=== PATIENT | female | born 1965 | race American Indian/Alaskan Native ===

== ENCOUNTER 2016-10-04 05:53 | Emergency (ER) | payer BC ==
[2016-10-04] MEDS ORDERED: TYLENOL PO ONE (10:22)
--- NOTE | 2016-10-04 10:24 | Emergency Department Report ---
Chief Complaint: Back Pain/Injury Stated Complaint: back pain - HPI History of Present Illness: 51-year-old -[place] female comes in for complaint of right lower back pain that radiates to the right flank 2 days. Patient was arrived this morning at 0555. She was having nausea at that time she has no nausea now no diarrhea has taken no [id number] medication. As she's had no prior similar events. - Exam Physical Exam: Alert and oriented 3 right side flank tenderness. Cardio S1-S2 regular rate and rhythm respiratory intoxication bilateral MSE screening note: Focused history and physical exam performed. Due to findings the following was ordered: Patient's been evaluated by this provider fast track. Labs and urine is ordered and completed during downtime. Were waiting for lab to send over the results. Patient be evaluated in fast track CT scan ordered concern for kidney stone. ED Disposition for MSE Condition: Stable Referrals: JEAN ORTA MD [Primary Care Provider] - 3-5 Days
[2016-10-04 10:25] VITALS: BP 158/93
--- NOTE | 2016-10-04 11:21 | Cat Scan Report ---
CT scan of abdomen and pelvis without IV contrast: History: Right flank pain. Findings: Normal lung bases. No pleural pericardial effusion. Normal liver and pancreas. 1.5 cm hypodensity spleen probably cyst. Patient status post cholecystectomy. Normal adrenals and right kidney parenchyma and bladder. Nonobstructing 3 mm calculus left kidney. Normal appendix. Stool in colon predominantly ascending colon. No evidence of diverticulitis. Calcification within the uterus suggestive of calcified fibroid. No free intraperitoneal fluid or air. No evidence of adenopathy. Normal aorta. Impression: Nonobstructing calculus left kidney. Small calcified fibroid uterus. Hypodensity spleen probably cysts. Essentially negative CT scan of the abdomen CT scan of pelvis.
[2016-10-04] MEDS ORDERED: TORADOL IM ONE (12:03)
[2016-10-04] MEDS ORDERED: NORCO 5/325 PO ONE (12:03)
[2016-10-04 12:53] LABS: Basophils % (Auto) 0.8 % (0.0-1.8); Eosinophils % (Auto) 1.2 % (0.0-4.3); Hematocrit 40.8 % (30.3-42.9); Mean Corpuscular HGB Conc 32 % (30-34); Mean Corpuscular Hemoglobin 27 pg (28-32); Mean Corpuscular Volume 86 fl (79-97); Platelet Count 344 K/mm3 (140-440); Red Blood Count 4.74 M/mm3 (3.65-5.03); Red Cell Distribution Width 14.1 % (13.2-15.2); White Blood Count 6.2 K/mm3 (4.5-11.0)
[2016-10-04 12:56] LABS: Anion Gap 17 mmol/L; BUN/Creatinine Ratio 16.66; Blood Urea Nitrogen 10 mg/dL (7-17); Carbon Dioxide 25 mmol/L (22-30); Chloride 99.5 mmol/L (98-107); Glucose 98 mg/dL (65-100); Potassium 4.2 mmol/L (3.6-5.0); Sodium 137 mmol/L (137-145)
[2016-10-04 13:00] LABS: Bacteria,Urine 1+ /HPF (Negative); Bilirubin,Urine NEG (Negative); Blood,Urine LG (Negative); Ketones,Urine NEG (Negative); Leukocyte Esterase,Urine SM (Negative); Nitrite,Urine NEG (Negative); Protein,Urine <15 mg/dL mg/dL (Negative); Urobilinogen,Urine < 2.0 mg/dL (<2.0)
[2016-10-04] MEDS ORDERED: VALIUM PO ONE (13:44)
--- NOTE | 2016-10-04 14:00 | Emergency Department Report ---
Entered by NELLA MONTAÑO, acting as scribe for TANVI TORRES PA. ED Back Pain/Injury HPI - General Chief Complaint: Back Pain/Injury Stated Complaint: back pain Time Seen by Provider: 10/04/16 11:23 Source: patient Mode of arrival: Ambulatory Limitations: No Limitations - History of Present Illness Initial Comments: 51 year old female presents to the ED for evaluation of right low back pain with radiation to right lower abdomen for 2-3 days. Patient reports her back pain worsens with deep breath and movement. She denies fever, N/V/D, constipation, urinary symptoms, chest pain, shortness of breath. No PMHx kidney stones or previous similar episodes. LNMP 09/30/2016 and she is currently on her period. MD Complaint: back pain -: days(s) (2-3) Similar Symptoms Previously: No Place: home Radiation: abdomen (right lower quadrant) Improves With: none Worsens With: deep breaths/cough Context: unknown Associated Symptoms: abdominal pain (right lower quadrant). denies: chest pain , difficulty urinating, incontinence, fever/chills, constipation, nausea/ vomiting, shortness of breath - Related Data Previous Rx's Medication Instructions Recorded Last Taken Type Ciprofloxacin HCl [Ciprofloxacin 500 mg PO Q12HR #6 tab 07/02/15 Unknown Rx TAB] HYDROcodone/APAP 10-325 [Brenham 1 each PO Q4-6H PRN #16 tablet 07/02/15 Unknown Rx 10/325] Naproxen [Naprosyn TAB] 500 mg PO BID #20 tablet 08/18/15 Unknown Rx methOCARBAMOL [Robaxin TAB] 500 mg PO Q6H PRN #20 tablet 08/18/15 Unknown Rx Acetaminophen/Codeine 1 tab PO Q6H PRN #15 tab 08/28/15 Unknown Rx [Acetaminophen-Codeine #3 TAB] Naproxen [Naprosyn] 500 mg PO BID #30 tablet 10/04/16 Unknown Rx Sulfamethoxazole/Trimethoprim 1 each PO BID #10 tablet 10/04/16 Unknown Rx [Bactrim DS TAB] methOCARBAMOL [Robaxin TAB] 500 mg PO BID #14 tab 10/04/16 Unknown Rx Allergies Allergy/AdvReac Type Severity Reaction Status Date / Time Contrast ivp dye Allergy Hives Uncoded 08/18/15 09:10 ED Review of Systems Comment: All other systems reviewed and negative Constitutional: denies: chills, fever Respiratory: denies: shortness of breath Cardiovascular: denies: chest pain Gastrointestinal: abdominal pain (right lower quadrant). denies: nausea, vomiting, diarrhea, constipation Genitourinary: denies: urgency, dysuria, frequency, hematuria, discharge, abnormal menses Musculoskeletal: back pain (right low back) ED Past Medical Hx - Past Medical History Hx Headaches / Migraines: Yes Additional medical history: chiari malformation - Surgical History Hx Cholecystectomy: Yes Additional Surgical History: tonsillectomy. Carpal tunnel - Social History Smoking Status: Never Smoker Substance Use Type: None - Medications Home Medications: Home Medications Medication Instructions Recorded Confirmed Last Taken Type Ciprofloxacin HCl [Ciprofloxacin 500 mg PO Q12HR #6 tab 07/02/15 Unknown Rx TAB] HYDROcodone/APAP 10-325 [Brenham 1 each PO Q4-6H PRN #16 tablet 07/02/15 Unknown Rx 10/325] Naproxen [Naprosyn TAB] 500 mg PO BID #20 tablet 08/18/15 Unknown Rx methOCARBAMOL [Robaxin TAB] 500 mg PO Q6H PRN #20 tablet 08/18/15 Unknown Rx Acetaminophen/Codeine 1 tab PO Q6H PRN #15 tab 08/28/15 Unknown Rx [Acetaminophen-Codeine #3 TAB] Naproxen [Naprosyn] 500 mg PO BID #30 tablet 10/04/16 Unknown Rx Sulfamethoxazole/Trimethoprim 1 each PO BID #10 tablet 10/04/16 Unknown Rx [Bactrim DS TAB] methOCARBAMOL [Robaxin TAB] 500 mg PO BID #14 tab 10/04/16 Unknown Rx ED Physical Exam - General General appearance: other (The patient is well-developed and well-nourished. Patient is in NAD. ) - Head Head exam: Present: atraumatic, normocephalic - Respiratory Respiratory exam: Present: normal lung sounds bilaterally. Absent: respiratory distress, wheezes, rales, rhonchi - Cardiovascular Cardiovascular Exam: Present: regular rate, normal rhythm, normal heart sounds. Absent: systolic murmur, diastolic murmur, rubs, gallop - GI/Abdominal GI/Abdominal exam: Present: soft, normal bowel sounds. Absent: distended, tenderness, guarding, rebound - Back Exam Back exam: Present: normal inspection, full ROM, CVA tenderness (R), muscle spasm. Absent: CVA tenderness (L), vertebral tenderness - Neurological Exam Neurological exam: Present: alert, oriented X3 - Psychiatric Psychiatric exam: Present: normal affect, normal mood ED Course Vital Signs 10/04/16 10/04/16 10/04/16 10:20 10:47 11:47 Temperature 97.9 F Pulse Rate 69 Respiratory 19 22 22 Rate Blood Pressure 158/93 O2 Sat by Pulse 99 Oximetry 10/04/16 10/04/16 12:33 12:34 Temperature Pulse Rate Respiratory 22 22 Rate Blood Pressure O2 Sat by Pulse Oximetry ED Medical Decision Making - Lab Data Result diagrams: 10/04/16 12:32 10/04/16 12:32 Vital Signs 10/04/16 10/04/16 10/04/16 10:20 10:47 11:47 Temperature 97.9 F Pulse Rate 69 Respiratory 19 22 22 Rate Blood Pressure 158/93 O2 Sat by Pulse 99 Oximetry 10/04/16 10/04/16 12:33 12:34 Temperature Pulse Rate Respiratory 22 22 Rate Blood Pressure O2 Sat by Pulse Oximetry Lab Results 10/04/16 10/04/16 10/04/16 Range/Units 12:32 12:32 12:33 WBC 6.2 (4.5-11.0) K/mm3 RBC 4.74 (3.65-5.03) M/mm3 Hgb 13.0 (10.1-14.3) gm/dl Hct 40.8 (30.3-42.9) % MCV 86 (79-97) fl MCH 27 L (28-32) pg MCHC 32 (30-34) % RDW 14.1 (13.2-15.2) % Plt Count 344 (140-440) K/mm3 Lymph % (Auto) 39.4 H (13.4-35.0) % [place] % (Auto) 5.6 (0.0-7.3) % Eos % (Auto) 1.2 (0.0-4.3) % Baso % (Auto) 0.8 (0.0-1.8) % Lymph # 2.4 (1.2-5.4) K/mm3 [place] # 0.4 (0.0-0.8) K/mm3 Eos # 0.1 (0.0-0.4) K/mm3 Baso # 0.1 (0.0-0.1) K/mm3 Seg Neutrophils % 53.0 (40.0-70.0) % Seg Neutrophils # 3.3 (1.8-7.7) K/mm3 Sodium 137 (137-145) mmol/L Potassium 4.2 (3.6-5.0) mmol/L Chloride 99.5 (98-107) mmol/L Carbon Dioxide 25 (22-30) mmol/L Anion Gap 17 mmol/L BUN 10 (7-17) mg/dL Creatinine 0.6 L (0.7-1.2) mg/dL Estimated GFR > 60 ml/min BUN/Creatinine Ratio 16.66 % Glucose 98 (65-100) mg/dL Calcium 9.0 (8.4-10.2) mg/dL Urine Color Yellow (Yellow) Urine Turbidity Clear (Clear) Urine pH 7.0 (5.0-7.0) Ur Specific [place] 1.010 (1.003-1.030) Urine Protein <15 mg/dl (Negative) mg/dL Urine Glucose (UA) Neg (Negative) mg/dL Urine Ketones Neg (Negative) mg/dL Urine Blood Lg (Negative) Urine Nitrite Neg (Negative) Ur Reducing Substances Not Reportable Urine Bilirubin Neg (Negative) Urine Ictotest Not Reportable Urine Urobilinogen < 2.0 (<2.0) mg/dL Ur Leukocyte Esterase Sm (Negative) Urine WBC (Auto) 7.0 H (0.0-6.0) /HPF Urine RBC (Auto) 3.0 (0.0-6.0) /HPF U Epithel Cells (Auto) 6.0 (0-13.0) /HPF Urine Bacteria (Auto) 1+ (Negative) /HPF Urine HCG, Qual Negative (Negative) - Radiology Data Radiology results: report reviewed, image reviewed CT scan of abdomen and pelvis without IV contrast: History: Right flank pain. Findings: Normal lung bases. No pleural pericardial effusion. Normal liver and pancreas. 1.5 cm hypodensity spleen probably cyst. Patient status post cholecystectomy. Normal adrenals and right kidney parenchyma and bladder. Nonobstructing 3 mm calculus left kidney. Normal appendix. Stool in colon predominantly ascending colon. No evidence of diverticulitis. Calcification within the uterus suggestive of calcified fibroid. No free intraperitoneal fluid or air. No evidence of adenopathy. Normal aorta. Impression: Nonobstructing calculus left kidney. Small calcified fibroid uterus. Hypodensity spleen probably cysts. Essentially negative CT scan of the abdomen CT scan of pelvis. - Medical Decision Making 51-year-old female presents today with right flank pain radiating to her right lower abdomen [address] results reveal a nonobstructing calculus of left kidney, small calcified fibroid uterus and hypodensity spleen probably cysts. The urinalysis reveals small leukocyte Estrace and slightly elevated urine WBC. There is blood in her urine but patient is currently on her period. Her lab results are within normal limits. Patient was given Valium, Toradol, Brenham and reported symptomatic relief. Patient is in no acute distress at this time. She will be discharged home and is encouraged to follow up with a primary care provider. She will be sent home on Bactrim, Robaxin and Naprosyn and is encouraged to return to the emergency room for any worsening symptoms. ED Disposition Clinical Impression: Low back pain Qualifiers: Chronicity: acute Back pain laterality: right Sciatica presence: without sciatica Qualified Code(s): M54.5 - Low back pain UTI (urinary tract infection) Qualifiers: Urinary tract infection type: acute cystitis Hematuria presence: with hematuria Qualified Code(s): N30.01 - Acute cystitis with hematuria Disposition: DISCHARGED TO HOME OR SELFCARE Is pt being admited?: No Does the pt Need Aspirin: No Condition: Stable Instructions: Urinary Tract Infection in Women (ED), Low Back Strain (ED) Additional Instructions: Follow-up with primary care provider. Return to the emergency department if symptoms worsen. Prescriptions: methOCARBAMOL [Robaxin TAB] 500 mg PO BID #14 tab Naproxen [Naprosyn] 500 mg PO BID #30 tablet Sulfamethoxazole/Trimethoprim [Bactrim DS TAB] 1 each PO BID #10 tablet Referrals: JEAN ORTA MD [Primary Care Provider] - 3-5 Days Forms: Work/School Release Form(ED), Accompanied Note Time of Disposition: 13:55 This documentation as recorded by the SABRA keller REBEKAH,accurately reflects the service I personally performed and the decisions made by ,TANVI TORRES PA.
== END 2016-10-04 14:09 | disposition home or self-care (01) ==
LOC: ED 05:53
DX: N30.01 Acute cystitis with hematuria (principal); M54.5 Low back pain; G43.909 Migraine, unspecified, not intractable, without status migrainosus
CPT/HCPCS: 36415; 74176; 80048; 81001; 81025; 85025; 96372; 99284; J1885